=== PATIENT | male | born 1975 | race Caucasian/White ===

== ENCOUNTER 2023-12-16 15:47 | Emergency (ER) | payer OTHER, SELFPAY ==
[2023-12-16 15:47] VITALS: BP 136/70; PULSE 56; RESP 20; TEMP 36.4; O2SAT 99
--- NOTE | 2023-12-16 15:52 | ED.EAR ---
HPI - Ear Problem General Chief complaint: Ear Stated complaint: right ear pressure/tinnitis Source: patient and family Mode of arrival: ambulatory History of Present Illness HPI Narrative: this is a 48-year-old male with some bilateral ear pressure and dizziness for the past 3 weeks with sinus congestion and drainage with no fever chills no shortness of breath no palpitations. MD Complaint: ear pain Location: bilateral Duration: constant Severity: moderate Relieving factors: nothing Related Data Allergies Allergy/AdvReac Type Severity Reaction Status Date / Time latex AdvReac Unknown Verified 12/16/23 15:52 PMFSH Past Medical History Medical History Patient denies medical problems Exam Const: General: healthy appearing, no acute distress and alert Nutritional Appearance: well nourished Orientation/consciousness: patient oriented x3 HENMT: Head: normal to inspection Other: bilateral swollen turbinates with bilateral ear dullness with postnasal drip Chest: Chest palpation & inspection: normal inspection of the chest Resp: Effort & Inspection: normal respiratory effort Auscultation: clear to auscultation bilaterally Cardio: Rate: regular rate Rhythm: regular rhythm GI: GI Palp: Yes Soft to palpation Auscultation: normal bowel sounds Course Course Emergency Course: patient with some sinus congestion and will treat with antihistamines and will send antibiotics to his local pharmacy. Critical Care Time Critical Care Time Critical Care Time: No Discharge Plan Discharge Clinical Impression: Dizziness, Sinusitis, acute Patient Disposition: Home, Self-Care Condition: Stable Instructions: Antibiotic Form, Sinusitis (ED) Additional Instructions: can take Claritin [id number] daily x1 week along with prescribed medication and follow with primary if symptoms persist or worsen. Prescriptions: New azithromycin [Zithromax Z-Toan] 250 mg tablet See Rx Instructions .ROUTE .COMPLEX Qty: 6 0RF Rx Instructions: For 250 mg dose pack: take 500 mg today (day 1), then 250 mg for 4 days (days 2-5) meclizine 25 mg tablet 25 mg PO TID Qty: 20 0RF fluticasone propionate [Flonase Allergy Relief] 50 mcg/actuation spray,suspension 2 spray intranasal DAILY Qty: 16 0RF Rx Instructions: administer into each nostril Follow-up/Referrals: UNKNOWN,DOCTOR [Primary Care Provider] - Time of Disposition: 15:57
== END 2023-12-16 15:59 | disposition home or self-care (01) ==
LOC: CHSED 15:59
PROVIDERS: Emergency Provider Emergency Medicine
DX: R42 Dizziness and giddiness (principal); J01.90 Acute sinusitis, unspecified
CPT/HCPCS: 99283